=== PATIENT | male | born 1985 | race Hispanic/Latino ===

== ENCOUNTER 2024-05-21 16:51 | Emergency (ER) | payer BC ==
[~2024-05-21] VITALS: Ht 175.3 cm; Wt 102.1 kg
[2024-05-21 16:52] VITALS: BP 144/93; PULSE 104; RESP 18; TEMP 98
== END 2024-05-21 18:33 | disposition left against medical advice (07) ==
LOC: EDH 16:51
DX: Z48.00 Encounter for change or removal of nonsurgical wound dressing (principal); Z53.21 Procedure and treatment not carried out due to patient leaving prior to being seen by health care provider